=== PATIENT | female | born 1995 | race Two or more races ===

== ENCOUNTER 2021-10-15 05:32 | Inpatient (IN) | payer OTHER ==
[~2021-10-15] VITALS: Ht 170.2 cm; Wt 152.4 kg
[2021-10-15] MEDS ORDERED: PRENATAL + DHA1 EAC1 PO (09:22)
== END 2021-10-18 10:39 | disposition home or self-care (01) | DRG 788 ==
LOC: LDR 05:32 → OB/GYN 10-16 00:05
PROVIDERS: ADMIT Specialist; ATTEND Specialist
PROC: 4A1HXCZ Monitoring of Products of Conception, Cardiac Rate, External Approach (ICD-10-PCS; 2021-10-15)
PROC: 10D00Z1 Extraction of Products of Conception, Low, Open Approach (ICD-10-PCS; principal; 2021-10-15 21:30)
DX: O62.1 Secondary uterine inertia (principal); Z37.0 Single live birth; Z3A.39 39 weeks gestation of pregnancy; Z20.822 Contact with and (suspected) exposure to COVID-19

== ENCOUNTER 2024-07-15 09:00 | Inpatient (IN) | payer OTHER ==
[~2024-07-15] VITALS: Ht 170.2 cm; Wt 3.2 kg
[~2024-07-15 09:00] MED LIST: PRENATAL + DHA1 EAC1 PO
[2024-07-15 11:07] LABS: URINE APPEARANCE Cloudy; URINE BILIRRUBIN Negative (NEGATIVE); URINE BLOOD Negative; URINE COLOR Yellow; URINE GLUCOSE Negative (NEGATIVE); URINE KETONE Negative (NEGATIVE); URINE LEUKOCYTE Moderate; URINE NITRATE Negative; URINE PROTEIN Negative (NEGATIVE)
[2024-07-15 11:10] LABS: URINE EPITHELIAL CELLS 111.1 uL (0.0-38.8); URINE WBC 64.4 uL (0.0-23.2)
[2024-07-15 11:29] LABS: HEMATOCRIT 37.7 % (36.0-45.00); HEMOGLOBIN 13.1 g/dL (12.0-15.00); MEAN CELL VOLUME 90.4 fL (80.00-100.00); MEAN CORPUSCULAR HEMOGLOBIN 31.4 pg (27.00-32.0); MEAN CORPUSCULAR HGB CONC 34.7 g/dl (32.0-36.0); PLATELET COUNT 214 K/uL (150-450); RED BLOOD COUNT 4.17 M/uL (4.00-6.00); RED CELL DISTRIBUTION WIDTH 14.6 % (11.5-14.5)
[2024-07-15 11:44] LABS: URINE RBC 1.1 uL (0.0-20.8)
[2024-07-15 11:45] LABS: URINE CRYSTALS FEW /HPF
[2024-07-15 12:04] LABS: INR 0.94; PARTIAL THROMBOPLASTIN TIME 27.5 SECONDS (22.0-34.0); PROTHROMBIN TIME 10.3 SECONDS (9.0-11.5)
[2024-07-15 12:47] LABS: ALBUMIN 2.7 gm/dL (3.4-5.0); BILIRUBIN TOTAL 0.39 mg/dL (0.3-1.2); CREATININE SERUM 0.73 mg/dL (0.55-1.02); GFR 93.61; GLOBULINA 3.6 G/DL (2.4-3.5); POTASSIUM 4.66 mEq/L (3.5-5.1); TOTAL PROTEIN 6.3 gm/dL (6.4-8.2)
[2024-07-19] MEDS ORDERED: OXYTOCIN 10 UNITS/ML VIAL ONE (14:34)
[2024-07-19 17:08] LABS: HEMOGLOBIN 12.9 g/dL (12.0-15.00); MEAN CELL VOLUME 92.9 fL (80.00-100.00); MEAN CORPUSCULAR HEMOGLOBIN 30.7 pg (27.00-32.0); MEAN CORPUSCULAR HGB CONC 33.1 g/dl (32.0-36.0); PLATELET COUNT 209 K/uL (150-450); RED CELL DISTRIBUTION WIDTH 14.6 % (11.5-14.5)
[2024-07-20 08:00] VITALS: BP 122/80
[2024-07-20] MEDS ORDERED: DOCUSATE CALCIUM 240 MG CAPSULE PO SCH (12:00)
[2024-07-20] MEDS ORDERED: SIMETHICONE 125 MG CAPSULE PO SCH (13:00)
[2024-07-20] MEDS ORDERED: OxyCODONE HCL/APAP UD (PERCOCET) PO SCH (13:00)
[2024-07-20 15:34] VITALS: BP 115/75
[2024-07-20] MEDS ORDERED: ENOXAPARIN SODIUM 40 MG/0.4 ML SYRINGE SUBCUTANEO SCH (21:00)
[2024-07-21 01:13] VITALS: BP 106/70
[2024-07-21 04:24] VITALS: BP 94/63
[2024-07-21 09:13] VITALS: BP 123/85
[2024-07-21 15:29] VITALS: BP 116/77
== END 2024-07-21 17:19 | disposition home or self-care (01) | DRG 785 ==
LOC: OB/GYN 07-19 07:00 → O/R 07-19 07:59 → OB/GYN 07-19 09:00
PROVIDERS: ADMIT Specialist; ATTEND Specialist
PROC: 0UB70ZZ Excision of Bilateral Fallopian Tubes, Open Approach (ICD-10-PCS; 2024-07-19)
PROC: 4A1HXCZ Monitoring of Products of Conception, Cardiac Rate, External Approach (ICD-10-PCS; 2024-07-19)
PROC: 10D00Z1 Extraction of Products of Conception, Low, Open Approach (ICD-10-PCS; principal; 2024-07-19 07:00)
DX: O34.211 Maternal care for low transverse scar from previous cesarean delivery (principal); Z3A.38 38 weeks gestation of pregnancy; Z30.2 Encounter for sterilization; Z37.0 Single live birth; Z20.822 Contact with and (suspected) exposure to COVID-19

== ENCOUNTER 2024-07-15 12:42 | Outpatient (CLI) | payer OTHER ==
[2024-07-15 12:41] VITALS: BP 91/64
[2024-07-15 15:10] VITALS: BP 104/71
[2024-07-15 16:18] VITALS: BP 104/71
== END 2024-07-15 16:18 | disposition home or self-care (01) ==
LOC: OBS/DEL 12:42
PROVIDERS: ATTEND Specialist
DX: O23.43 Unspecified infection of urinary tract in pregnancy, third trimester (principal); N39.0 Urinary tract infection, site not specified; Z3A.38 38 weeks gestation of pregnancy; O36.8199 Decreased fetal movements, unspecified trimester, other fetus; O34.219 Maternal care for unspecified type scar from previous cesarean delivery